=== PATIENT | female | born 1945 | race Caucasian/White ===

== ENCOUNTER → 2021-02-07 | Outpatient (CLI) | payer OTHER ==
[2021-02-07 10:15] LABS: HEMATOCRIT 40.5 % (37.0-47.0); HEMOGLOBIN 13.6 gm/dL (12.0-15.0); MCH 29.4 pg (26.0-34.0); MCHC 33.6 g/dL (28.0-37.0); MCV 87.4 fL (80.0-100.0); RBC 4.64 mil/uL (4.20-5.00); RDW 14.7 % (10.5-14.5); WBC 5.9 thou/uL (4.0-11.0)
[2021-02-07 10:42] LABS: ALBUMIN 3.6 g/dL (3.4-5.0); CALCIUM 9.3 mg/dL (8.5-10.1); CREATININE 0.7 mg/dL (0.6-1.0); POTASSIUM 4.1 mmol/L (3.5-5.1); TOTAL BILIRUBIN 0.3 mg/dL (0.2-1.0); TOTAL PROTEIN 7.4 g/dL (6.4-8.2)
== END ==
LOC: CAT 09:19
PROVIDERS: ATTEND Internal Medicine Cardiovascular Disease
DX: I48.91 Unspecified atrial fibrillation (principal); K76.89 Other specified diseases of liver

== ENCOUNTER 2021-02-11 06:21 | Observation (INO) | payer OTHER ==
[~2021-02-11] VITALS: Ht 157.5 cm; Wt 64.9 kg
[2021-02-11] VITALS (12 sets, daily range): BP systolic 99–148; BP diastolic 49–115
--- NOTE | ~2021-02-11 | P ---
[facility] [place] [address] PROCEDURE REPORT Name: GENESIS ARREDONDO Room #: 210-P [facility] Lisa#: [id number] Admission: 02/11/21 Attend Phys: Jerry Luveano MD Discharge: Date of : 41 Report #: [id number] THIS REPORT FOR: cc: Jesus Tidwell MD, Michael S. MD Couchonnal, Luis F. MD ~ DOC #: [id number] Jerry Luevano MD DATE OF SERVICE: 02/11/2021 PREOPERATIVE DIAGNOSIS: Paroxysmal atrial fibrillation. POSTOPERATIVE DIAGNOSIS: Paroxysmal atrial fibrillation. PROCEDURES PERFORMED: 1. Atrial fibrillation, CPT code 68943. 2. 3D mapping, CPT code 60478. 3. Intracardiac echo, CPT code 51885. 4. Focal ablation, CPT code 68093. INDICATIONS: The patient is a 75-year-old female status post atrial fibrillation ablation back in 2011 at an outside hospital. She has had recurrent atrial fibrillation and has intolerances to propafenone therapy because of result in worsening neurologic symptoms. She is here for a repeat AFib ablation. ANESTHESIA: The patient underwent general anesthesia with no anesthesia-related complications. PROCEDURE: The patient underwent informed consent. We discussed the details of the procedure including the risks, which include but not limited to bleeding, vascular damage, stroke, MD, cardiac perforation. She understood these risks and is willing to proceed. DESCRIPTION OF PROCEDURE: The patient was brought to the EP laboratory in a fasting and sedated state, prepped and draped in a sterile fashion. I obtained access in the right femoral vein x3, placing an 8, 9 and 7-Jamaican short sheath using the modified Seldinger technique. Under fluoroscopy, decapolar catheter was placed using the coronary sinus and ICE catheter was placed in the right atrium. 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 This was merged with her cardiac CT scan. The patient was systemically heparinized and a transseptal was performed using SL1 sheath and a [place] needle. This was straightforward and I exchanged for the cryo sheath into the left atrium. Next, using a Lasso catheter, 3D geometry of the left atrium was created. This showed that the left superior pulmonary vein was reconnected and the other veins remained isolated. There was evidence of a [facility] [address] [place] [address] PROCEDURE REPORT Name: ARNULFOGENESIS R Room #: 210-P [facility] Laney Gonzalez#: [id number] Admission: 02/11/21 Attend Phys: Jerry Luevano MD Discharge: Date of : 41 Report #: [id number] significant posterior wall complex fractionated electrograms. Next, the cryoballoon was placed in the left atrium. The left superior pulmonary vein underwent a 4-minute freeze, resulting in isolation. The left inferior pulmonary vein underwent a 4-minute freeze, the right superior pulmonary vein underwent 3-minute freeze and the right inferior pulmonary vein underwent 180 second freeze. These were to widen the areas of prior ablation to ensure that these areas around the vein would not become proarrhythmic. Next, using the cryoablation balloon, I decided to perform posterior wall isolation technique. I performed 4 freezings of the posterior wall, anchored from the left superior pulmonary vein. Each of these freezes was of 3 minutes duration and then I performed 4 freezes anchored from the left inferior pulmonary vein, each of 3 minutes duration as well. The esophageal temperatures were closely monitored and remained stable throughout the procedure. Post-ablation, a repeat voltage map was created and this showed that all pulmonary veins were now isolated and we now had a posterior wall isolation as well. There were no other arrhythmias noted. There was no evidence of pericardial effusion. As such, the procedure was concluded. The patient received systemic protamine. Catheters and sheaths were pulled. Hemostasis was obtained. The patient awoke neurologically and hemodynamically intact. No complications. No significant bleeding. CONCLUSIONS: 1. Successful AFib ablation with isolation of the pulmonary veins. 2. Successful posterior wall isolation. 3. No other inducible arrhythmias. MD TALIB Lauren/TOMÁS By: [id number] Jerry Luevano MD /nt
[2021-02-11 07:40] LABS: ABSOLUTE NEUTROPHILS 2.8 thou/uL (1.4-8.2); BASOPHILS 1.2 % (0.0-2.0); EOSINOPHILS 2.4 % (0.0-3.0); HEMATOCRIT 42.2 % (37.0-47.0); LYMPHOCYTES 34.6 % (24.0-44.0); MCH 29.2 pg (26.0-34.0); MCHC 33.1 g/dL (28.0-37.0); MCV 88.3 fL (80.0-100.0); MONOCYTES 11.4 % (1.0-8.0); PLATELET COUNT 275 thou/uL (150-400); POLYS 50.4 % (36.0-66.0); RBC 4.78 mil/uL (4.20-5.00); RDW 14.9 % (10.5-14.5); WBC 5.6 thou/uL (4.0-11.0)
[2021-02-11 07:46] LABS: CALCIUM 9.2 mg/dL (8.5-10.1); CREATININE 0.7 mg/dL (0.6-1.0); POTASSIUM 3.8 mmol/L (3.5-5.1)
[2021-02-11 07:49] LABS: APTT 26.8 Seconds (24.5-32.8); INR 0.99; PROTIME 10.8 Seconds (10.5-12.1)
[2021-02-11 07:51] LABS: ALBUMIN 3.6 g/dL (3.4-5.0); TOTAL BILIRUBIN 0.5 mg/dL (0.2-1.0); TOTAL PROTEIN 7.1 g/dL (6.4-8.2)
[2021-02-11] MEDS ORDERED: PRADAXA150 MG PO (07:52)
[2021-02-11] MEDS ORDERED: HYDROCHLOROTHIA25 M1 PO (07:53)
[2021-02-11] MEDS ORDERED: CARDIZEM CD 18180 M3 PO (07:53)
[2021-02-11] MEDS ORDERED: LISINOPRIL20 MG PO (07:54)
--- NOTE | 2021-02-11 12:15 | NUR ---
PT ARRIVED APPROX 1130. VSS, A&OX4, R GROIN SITE CDI NO HEMATOMA WITH STOPCOCK IN PLACE. WILL REMOVED PER ORDERS. ADMISSION COMPLETE. TELE STRIP PRINTED. PT DENIES PAIN. SR ON TELE. DENIES NEEDS AT THIS TIME. CONTINUING POC.
[2021-02-11] MEDS ORDERED: VITCB500GO PO (13:15)
[2021-02-11] MEDS ORDERED: VITAMIN D350 MC3 PO (13:16)
[2021-02-11] MEDS ORDERED: PROPAFENONE HC225 M1 PO (13:18)
[2021-02-11] MEDS ORDERED: TOPROL XL25 MG PO (13:19)
--- NOTE | 2021-02-12 03:30 | NUR ---
SLEPT MOST OF SHIFT. UP TO BATHROOM NEEDED. MAINTAIN SAFE ENVIRONMENT. DENIES COMPLAINTS OF PAIN OR SHORTNESS OF AIR. RIGHT GROIN SITE FREE OF HEMOTOMA. MINIMAL DRAINAGE TO DRESSING. WORKING ON GOALS AND PLAN OF CARE FOR NOC. CONTINUE TO RUTH LOPEZ.
[2021-02-12 03:57] VITALS: BP 110/59
[2021-02-12 07:00] VITALS: BP 112/62
[2021-02-12 08:15] VITALS: BP 112/62
[2021-02-12 11:26] VITALS: BP 112/62
[2021-02-12 11:45] VITALS: BP 120/49
[2021-02-12 12:13] VITALS: BP 120/49
--- NOTE | 2021-02-12 12:41 | NUR ---
PT CARE ASSUMED AT 0700. ASSESSMENTS CHARTED. MEDICATIONS CHARTED. RAC IV-S/L. SINUS RHYTHM, 1ST DEG AV BLOCK. RT GROIN, STOP COCK CLOSURE, C/D/I. UP AD DEAN. PT DISCHARGED TO HOME. DISCHARGE PAPERWORK SIGNED. TELEMETRY D/C'D. IV D/C'D
== END 2021-02-12 12:18 | disposition home or self-care (01) ==
LOC: CATH 06:21 → 2N 11:22 → CATH 12:18 → 2N 02-12 12:18
PROVIDERS: ADMIT Internal Medicine Cardiovascular Disease; ATTEND Internal Medicine Cardiovascular Disease
DX: I48.0 Paroxysmal atrial fibrillation (principal); Z20.822 Contact with and (suspected) exposure to COVID-19; I10 Essential (primary) hypertension; E78.5 Hyperlipidemia, unspecified; Z98.890 Other specified postprocedural states
CPT/HCPCS: 62110; 62900; 65020; 70005

== ENCOUNTER → 2021-05-17 | Outpatient (CLI) | payer OTHER ==
[~2021-05-17] MED LIST: CARDIZEM CD 18180 M3 PO; HYDROCHLOROTHIA25 M1 PO; LISINOPRIL20 MG PO; PRADAXA150 MG PO; PROPAFENONE HC225 M1 PO; TOPROL XL25 MG PO; VITAMIN D350 MC3 PO; VITCB500GO PO
== END ==
LOC: SJCVC 08:47
PROVIDERS: ATTEND Internal Medicine Cardiovascular Disease
DX: R94.31 Abnormal electrocardiogram [ECG] [EKG] (principal); I44.0 Atrioventricular block, first degree; I48.0 Paroxysmal atrial fibrillation; I10 Essential (primary) hypertension; E78.00 Pure hypercholesterolemia, unspecified; E78.5 Hyperlipidemia, unspecified; E55.9 Vitamin D deficiency, unspecified; Z88.8 Allergy status to other drugs, medicaments and biological substances; Z79.899 Other long term (current) drug therapy

== ENCOUNTER → 2021-08-24 | Outpatient (CLI) | payer OTHER ==
--- NOTE | ~2021-08-24 | P ---
[facility] [place] [address] PROCEDURE REPORT Name: GENESIS ARREDONDO Room #: REG KAREN Orquidea.#: [id number] Admission: 08/24/21 Attend Phys: Jerry Luevano MD Discharge: Date of : 41 Report #: [id number] THIS REPORT FOR: cc: Jesus Tidwell MD, Michael S. MD Couchonnal, Luis F. MD ~ DATE OF SERVICE: 08/24/2021 PROCEDURE: Implantable loop recorder insertion. PREOPERATIVE DIAGNOSIS: Atrial fibrillation. POSTOPERATIVE DIAGNOSIS: Atrial fibrillation. DESCRIPTION OF PROCEDURE: The patient was brought to the procedure suite in fasting and a sedated state. She underwent informed consent. She was prepped in a standard fashion. I injected lidocaine at the incision site. Incision was made. Device injected under the skin, tested and found to be functioning normally. Incision was sutured closed. A dressing was placed. The implanted device was [employer] model number [id number], serial number [id number]. CONCLUSION: Successful implantation of a loop recorder. By: [id number] Jerry Luevano MD /nt
[2021-08-24 09:18] VITALS: BP 125/64
== END | disposition home or self-care (01) ==
LOC: CATH 08:00
PROVIDERS: ATTEND Internal Medicine Cardiovascular Disease
DX: I48.91 Unspecified atrial fibrillation (principal); I10 Essential (primary) hypertension; E78.5 Hyperlipidemia, unspecified; Z98.890 Other specified postprocedural states; Z79.899 Other long term (current) drug therapy; Z79.01 Long term (current) use of anticoagulants; Z91.041 Radiographic dye allergy status; Z88.8 Allergy status to other drugs, medicaments and biological substances

== ENCOUNTER → 2021-11-22 | Outpatient (CLI) | payer OTHER | LOC: SJCVC 08:44 | PROVIDERS: ATTEND Internal Medicine Cardiovascular Disease | DX: I44.0 Atrioventricular block, first degree (principal); R94.31 Abnormal electrocardiogram [ECG] [EKG]; I48.0 Paroxysmal atrial fibrillation; R00.2 Palpitations; I48.92 Unspecified atrial flutter; I10 Essential (primary) hypertension; R53.83 Other fatigue; R60.0 Localized edema; R01.1 Cardiac murmur, unspecified; Z88.8 Allergy status to other drugs, medicaments and biological substances; Z88.5 Allergy status to narcotic agent; Z79.899 Other long term (current) drug therapy; Z98.890 Other specified postprocedural states ==